=== PATIENT | male | born 1990 | race Caucasian/White ===

== ENCOUNTER 2020-09-07 16:02 | Emergency (ER) | payer OTHER ==
[~2020-09-07] VITALS: Ht 175.3 cm; Wt 90.9 kg
[2020-09-07] MEDS ORDERED: KETOROLAC TROMETHAMINE 60 MG/2 ML VIAL IM ONE (16:45)
[2020-09-07] MEDS ORDERED: LIDOCAINE 5% TRANSDERMAL PATCH TD ONE (16:45)
[2020-09-07 17:54] VITALS: BP 146/70
== END 2020-09-07 18:01 | disposition home or self-care (01) ==
LOC: EMS 16:08
DX: M54.5 Low back pain (principal)
CPT/HCPCS: 72110; 96374; 99283; J1885

== ENCOUNTER 2021-01-27 22:21 | Emergency (ER) | payer OTHER ==
[~2021-01-27] VITALS: Ht 175.3 cm; Wt 90.9 kg
[2021-01-28 01:00] VITALS: BP 127/80
[2021-01-28] MEDS ORDERED: DiphenhydrAMINE HCL 25 MG CAPSULE PO ONE (01:00)
== END 2021-01-28 01:10 | disposition home or self-care (01) ==
LOC: EMS 22:24
DX: S40.262A Insect bite (nonvenomous) of left shoulder, initial encounter (principal); S40.261A Insect bite (nonvenomous) of right shoulder, initial encounter; W57.XXXA Bitten or stung by nonvenomous insect and other nonvenomous arthropods, initial encounter; Y93.89 Activity, other specified; Y92.89 Other specified places as the place of occurrence of the external cause; Y99.8 Other external cause status
CPT/HCPCS: 99282; 99283

== ENCOUNTER 2021-01-29 22:28 | Emergency (ER) | payer OTHER ==
[~2021-01-29] VITALS: Ht 175.3 cm; Wt 90.9 kg
[2021-01-29 22:45] VITALS: BP 124/72
[2021-01-29] MEDS ORDERED: PERMETHRIN 1% 60 ML LOTION TP ONE (22:45)
[2021-01-29] MEDS ORDERED: PERMETHRIN 5% 60 GM CREAM TP ONE (23:15)
== END 2021-01-29 23:30 | disposition home or self-care (01) ==
LOC: EMS 22:29
DX: S90.861A Insect bite (nonvenomous), right foot, initial encounter (principal); S90.862A Insect bite (nonvenomous), left foot, initial encounter; W57.XXXA Bitten or stung by nonvenomous insect and other nonvenomous arthropods, initial encounter; Y93.89 Activity, other specified; Y92.89 Other specified places as the place of occurrence of the external cause; Y99.8 Other external cause status
CPT/HCPCS: 99282; Z7502; Z7610

== ENCOUNTER 2021-02-19 19:58 | Emergency (ER) | payer OTHER ==
[~2021-02-19] VITALS: Ht 175.3 cm; Wt 90.9 kg
[2021-02-19 20:15] VITALS: BP 119/72
[2021-02-19] MEDS ORDERED: KETOROLAC TROMETHAMINE 30 MG/ML VIAL IM ONE (20:15)
[2021-02-19] MEDS ORDERED: CEPHALEXIN MONOHYDRATE 500 MG CAPSULE PO ONE (20:15)
== END 2021-02-19 20:30 | disposition home or self-care (01) ==
LOC: EMS 20:01
DX: L02.415 Cutaneous abscess of right lower limb (principal); L03.115 Cellulitis of right lower limb
CPT/HCPCS: 96372; 99283; J1885

== ENCOUNTER 2021-04-13 15:58 | Emergency (ER) | payer OTHER ==
[~2021-04-13] VITALS: Ht 175.3 cm; Wt 90.9 kg
[2021-04-13 18:35] VITALS: BP 126/74
[2021-04-13] MEDS ORDERED: SODIUM CHLORIDE 0.9% 250 ML IRRIG SOLUTION BOTTLE IRRIG ONE (19:00)
== END 2021-04-13 19:15 | disposition home or self-care (01) ==
LOC: EMS 15:58
DX: S00.03XA Contusion of scalp, initial encounter (principal); S00.01XA Abrasion of scalp, initial encounter; F17.210 Nicotine dependence, cigarettes, uncomplicated; Y00.XXXA Assault by blunt object, initial encounter; Y93.89 Activity, other specified; Y92.89 Other specified places as the place of occurrence of the external cause; Y99.8 Other external cause status
CPT/HCPCS: 99283; Z7502

== ENCOUNTER 2021-05-22 15:51 | Emergency (ER) | payer OTHER ==
[~2021-05-22] VITALS: Ht 175.3 cm; Wt 100.0 kg
[2021-05-22 16:02] VITALS: BP 124/61
[2021-05-22 17:41] LABS: COVID AG,FIA SOURCE NASAL SWAB
[2021-05-22] MEDS ORDERED: ACETAMINOPHEN 500 MG TABLET PO ONE (19:30)
[2021-05-22] MEDS ORDERED: ONDANSETRON HCL 4 MG TABLET PO ONE (19:30)
== END 2021-05-22 19:45 | disposition home or self-care (01) ==
LOC: EMS 15:57
DX: U07.1 COVID-19 (principal); F17.210 Nicotine dependence, cigarettes, uncomplicated
CPT/HCPCS: 87426; 99283; Q0162; U0003

== ENCOUNTER 2021-06-18 18:19 | Emergency (ER) | payer OTHER ==
[~2021-06-18] VITALS: Ht 175.3 cm; Wt 95.5 kg
[2021-06-18] MEDS ORDERED: KETOROLAC TROMETHAMINE 30 MG/ML VIAL IM ONE (19:45)
[2021-06-18 20:14] LABS: BASOPHILS % (AUTO) 1.5 % (0.0-2.0); EOSINOPHILS % (AUTO) 9.7 % (1.0-6.0); HEMOGLOBIN 14.8 g/dL (13.5-17.5); MEAN CORPUSCULAR HEMOGLOBIN 32.2 pg (26.0-34.0); MEAN CORPUSCULAR HGB CONC 35.1 G/dL (31.0-37.0); MEAN CORPUSCULAR VOLUME 92 fL (80-100); MONOCYTES # (AUTO) 0.5 K/uL (0.1-1.0); MONOCYTES % (AUTO) 9.8 % (2.0-9.0); PLATELET COUNT (AUTO) 237 K/uL (150-450); RED BLOOD CELL COUNT(AUTO) 4.59 MIL/uL (4.50-5.90); RED CELL DISTRIBUTION WIDTH 14.1 % (11.5-14.5)
[2021-06-18 20:29] LABS: ANION GAP 16 mmol/L (8-16); CALCIUM, TOTAL 8.8 mg/dL (8.8-10.5); CARBON DIOXIDE 26 mmol/L (22-29); CHLORIDE 103 mmol/L (98-107); CREATININE 0.93 mg/dL (0.60-1.30); GLOMERULAR FILTR. RATE CALC > 60 mL/min (>60); GLUCOSE,RANDOM 92 mg/dL (70-110); POTASSIUM 3.6 mmol/L (3.5-5.1); SODIUM SERUM 145 mmol/L (136-145); UREA NITROGEN, BLOOD 16 mg/dL (7-18)
[2021-06-18 20:31] LABS: APPEARANCE,URINE CLOUDY (CLEAR); GLUCOSE, URINE (UA) NEGATIVE (NEGATIVE); KETONES,URINE TRACE mg/dL (NEGATIVE); LEUKOCYTE ESTERASE ,URINE NEGATIVE (NEGATIVE); NITRATE,URINE NEGATIVE (NEGATIVE); OCCULT BLOOD,URINE NEGATIVE (NEGATIVE); PH,URINE 5.5 (5.0-8.0); PROTEIN,URINE NEGATIVE (NEGATIVE)
[2021-06-18 20:31] LABS: ALANINE AMINOTRANSFERASE 20 U/L (12-78); ALBUMIN 3.9 g/dL (3.4-5.0); ALKALINE PHOSPHATASE 58 U/L (46-116); ASPARTATE AMINOTRANSFERASE 13 U/L (15-37); BILIRUBIN,TOTAL 0.4 mg/dL (0.1-1.0); LIPASE 67 U/L (73-393); TOTAL PROTEIN, SERUM 7.4 g/dL (6.4-8.2)
[2021-06-18 20:47] LABS: BILIRUBIN,URINE PRELIM. POSITIVE (NEGATIVE)
[2021-06-18 20:48] LABS: BACTERIA,URINE Rare /HPF (None Seen); RBC,URINE None Seen /HPF (0-2); WBC,URINE 0-2 /HPF (0-5)
[2021-06-18] MEDS ORDERED: IBUP-2070 PO (22:01)
[2021-06-18] MEDS ORDERED: METR250 PO (22:01)
[2021-06-18] MEDS ORDERED: SULF-261 PO (22:01)
[2021-06-18 22:17] VITALS: BP 126/73
[2021-06-19] MEDS ORDERED: IBUP-2070 PO (19:33)
[2021-06-19] MEDS ORDERED: SULF-261 PO (19:33)
[2021-06-19] MEDS ORDERED: METR250 PO (19:33)
== END 2021-06-18 22:35 | disposition home or self-care (01) ==
LOC: EMS 18:20
DX: K57.92 Diverticulitis of intestine, part unspecified, without perforation or abscess without bleeding (principal); F17.210 Nicotine dependence, cigarettes, uncomplicated
CPT/HCPCS: 36415; 74176; 80053; 81001; 83690; 85025; 96372; 99284; J1885

== ENCOUNTER 2021-08-02 14:08 | Emergency (ER) | payer OTHER ==
[~2021-08-02] VITALS: Ht 175.3 cm; Wt 97.7 kg
[~2021-08-02 14:08] MED LIST: IBUP-2070 PO; METR250 PO; SULF-261 PO
[2021-08-02 15:21] VITALS: BP 120/75
== END 2021-08-02 16:35 | disposition left against medical advice (07) ==
LOC: EMS 14:08
DX: M25.562 Pain in left knee (principal); Z53.21 Procedure and treatment not carried out due to patient leaving prior to being seen by health care provider

== ENCOUNTER 2021-12-26 14:07 | Emergency (ER) | payer OTHER ==
[~2021-12-26] VITALS: Ht 172.7 cm; Wt 75.0 kg
[2021-12-26 14:53] VITALS: BP 127/79
[2021-12-26] MEDS ORDERED: CefTRIAXone SODIUM 1 GM/VIAL IM ONE (15:30)
[2021-12-26] MEDS ORDERED: AZITHROMYCIN 500 MG TABLET PO ONE (15:30)
[2021-12-26] MEDS ORDERED: LIDOCAINE/PF 1% 2 ML VIAL IM ONE (15:30)
[2021-12-26 16:09] LABS: COVID AG,FIA SOURCE NASOPHARYNGEAL
[2021-12-26 16:13] LABS: APPEARANCE,URINE CLEAR (CLEAR); BILIRUBIN,URINE NEGATIVE (NEGATIVE); GLUCOSE, URINE (UA) NEGATIVE (NEGATIVE); KETONES,URINE TRACE mg/dL (NEGATIVE); LEUKOCYTE ESTERASE ,URINE NEGATIVE (NEGATIVE); NITRATE,URINE NEGATIVE (NEGATIVE); OCCULT BLOOD,URINE TRACE (NEGATIVE); PH,URINE 5.5 (5.0-8.0); PROTEIN,URINE 30-70 mg/dL (NEGATIVE); SPECIFIC GRAVITIY, URINE 1.031 (1.003-1.030)
[2021-12-26 16:30] LABS: BACTERIA,URINE Rare /HPF (None Seen); CALCIUM OXALATE CRYSTALS,UR Few /LPF (None Seen); SQUAMOUS EPITHELIAL CELL,UR Rare /LPF (None Seen); WBC,URINE 0-2 /HPF (0-5)
== END 2021-12-26 18:10 | disposition home or self-care (01) ==
LOC: EMS 14:16
DX: A64 Unspecified sexually transmitted disease (principal); Z20.822 Contact with and (suspected) exposure to COVID-19; F17.210 Nicotine dependence, cigarettes, uncomplicated
CPT/HCPCS: 99283; 87426; 81001; 87491; 87591; 96372; U0003; J0696; J3490; Q9967; C9803

== ENCOUNTER 2022-02-24 21:08 | Emergency (ER) | payer OTHER ==
[~2022-02-24] VITALS: Ht 170.2 cm; Wt 100.0 kg
[2022-02-24] MEDS ORDERED: KETOROLAC TROMETHAMINE 30 MG/ML VIAL IVP ONE (21:45)
[2022-02-24] MEDS ORDERED: SODIUM CHLORIDE 0.9% 2,000 ML IV ONE (21:45)
[2022-02-24] MEDS ORDERED: ONDANSETRON HCL 4 MG/2 ML VIAL IVP ONE (21:45)
[2022-02-24] MEDS ORDERED: DIPHENOXYLATE/ATROP 2.5-0.025 MG TABLET PO ONE (21:45)
[2022-02-24 21:47] LABS: BASOPHILS % (AUTO) 0.7 % (0.0-2.0); HEMATOCRIT 46.1 % (41-53); HEMOGLOBIN 15.8 g/dL (13.5-17.5); LYMPHOCYTES # (AUTO) 1.3 K/uL (1.0-4.8); LYMPHOCYTES % (AUTO) 18.4 % (22.0-44.0); MEAN CORPUSCULAR HEMOGLOBIN 32.8 pg (26.0-34.0); MEAN CORPUSCULAR HGB CONC 34.3 G/dL (31.0-37.0); MEAN CORPUSCULAR VOLUME 96 fL (80-100); MONOCYTES # (AUTO) 0.8 K/uL (0.1-1.0); MONOCYTES % (AUTO) 11.6 % (2.0-9.0); NEUTROPHILS # (AUTO) 4.3 K/uL (1.8-7.7); NEUTROPHILS % (AUTO) 61.3 % (40.0-70.0); PLATELET COUNT (AUTO) 292 K/uL (150-450); RED BLOOD CELL COUNT(AUTO) 4.83 MIL/uL (4.50-5.90); RED CELL DISTRIBUTION WIDTH 13.8 % (11.5-14.5)
[2022-02-24 22:02] LABS: ALANINE AMINOTRANSFERASE 36 U/L (12-78); ALBUMIN 2.9 g/dL (3.4-5.0); ALKALINE PHOSPHATASE 47 U/L (46-116); ANION GAP 3 mmol/L (8-16); ASPARTATE AMINOTRANSFERASE 20 U/L (15-37); BILIRUBIN,TOTAL 0.2 mg/dL (0.1-1.0); CALCIUM, TOTAL 8.5 mg/dL (8.8-10.5); CARBON DIOXIDE 32 mmol/L (22-29); CHLORIDE 105 mmol/L (98-107); CREATININE 1.19 mg/dL (0.60-1.30); GLUCOSE,RANDOM 95 mg/dL (70-110); LIPASE 90 U/L (73-393); POTASSIUM 3.8 mmol/L (3.5-5.1); SODIUM SERUM 140 mmol/L (136-145); TOTAL PROTEIN, SERUM 5.6 g/dL (6.4-8.2); UREA NITROGEN, BLOOD 7 mg/dL (7-18)
[2022-02-24 22:03] LABS: GLOMERULAR FILTR. RATE CALC > 60 mL/min (>60)
[2022-02-24] MEDS ORDERED: DIPH-654 PO (22:58)
[2022-02-24] MEDS ORDERED: ONDA-104 PO (22:58)
[2022-02-24] MEDS ORDERED: OMEP20 PO (22:58)
[2022-02-24] MEDS ORDERED: ACET-66 PO (22:58)
[2022-02-24] MEDS ORDERED: MAG30ORA11 PO (22:58)
[2022-02-24 23:07] VITALS: BP 126/70
== END 2022-02-24 23:57 | disposition home or self-care (01) ==
LOC: EMS 21:10
DX: K52.9 Noninfective gastroenteritis and colitis, unspecified (principal); R10.9 Unspecified abdominal pain; F10.20 Alcohol dependence, uncomplicated; F17.210 Nicotine dependence, cigarettes, uncomplicated; R53.1 Weakness; Y90.0 Blood alcohol level of less than 20 mg/100 ml
CPT/HCPCS: 99284; 74176; 96374; 96361; 96375; 80053; 83690; 84484; 85025; 36415; G0480; J1885; J2405; J7030

== ENCOUNTER 2022-02-28 21:40 | Emergency (ER) | payer OTHER ==
[~2022-02-28] VITALS: Ht 177.8 cm; Wt 90.9 kg
[~2022-02-28 21:40] MED LIST changes: +ACET-66 PO; +DIPH-654 PO; -IBUP-2070 PO; +MAG30ORA11 PO; -METR250 PO; +OMEP20 PO; +ONDA-104 PO; -SULF-261 PO
[2022-03-01 01:00] VITALS: BP 147/87
[2022-03-01 01:01] LABS: BASOPHILS % (AUTO) 1.1 % (0.0-2.0); EOSINOPHILS % (AUTO) 6.7 % (1.0-6.0); HEMATOCRIT 43.4 % (41-53); HEMOGLOBIN 14.9 g/dL (13.5-17.5); LYMPHOCYTES % (AUTO) 18.4 % (22.0-44.0); MEAN CORPUSCULAR HEMOGLOBIN 32.9 pg (26.0-34.0); MEAN CORPUSCULAR HGB CONC 34.3 G/dL (31.0-37.0); MEAN CORPUSCULAR VOLUME 96 fL (80-100); MONOCYTES # (AUTO) 0.6 K/uL (0.1-1.0); MONOCYTES % (AUTO) 10.3 % (2.0-9.0); NEUTROPHILS # (AUTO) 3.5 K/uL (1.8-7.7); NEUTROPHILS % (AUTO) 63.5 % (40.0-70.0); PLATELET COUNT (AUTO) 272 K/uL (150-450); RED BLOOD CELL COUNT(AUTO) 4.52 MIL/uL (4.50-5.90)
[2022-03-01 01:06] LABS: ANION GAP 7 mmol/L (8-16); CALCIUM, TOTAL 8.1 mg/dL (8.8-10.5); CARBON DIOXIDE 29 mmol/L (22-29); CHLORIDE 103 mmol/L (98-107); CREATININE 1.17 mg/dL (0.60-1.30); GLUCOSE,RANDOM 97 mg/dL (70-110); POTASSIUM 3.9 mmol/L (3.5-5.1); SODIUM SERUM 139 mmol/L (136-145); UREA NITROGEN, BLOOD 9 mg/dL (7-18)
[2022-03-01 01:12] LABS: GLOMERULAR FILTR. RATE CALC > 60 mL/min (>60)
[2022-03-01 01:20] LABS: ALANINE AMINOTRANSFERASE 62 U/L (12-78); ALBUMIN 3.2 g/dL (3.4-5.0); ALKALINE PHOSPHATASE 51 U/L (46-116); ASPARTATE AMINOTRANSFERASE 44 U/L (15-37); BILIRUBIN,TOTAL 0.2 mg/dL (0.1-1.0); TOTAL PROTEIN, SERUM 6.2 g/dL (6.4-8.2)
== END 2022-03-01 03:46 | disposition home or self-care (01) ==
LOC: EMS 21:40
DX: R45.851 Suicidal ideations (principal); K70.30 Alcoholic cirrhosis of liver without ascites; F17.210 Nicotine dependence, cigarettes, uncomplicated; F10.229 Alcohol dependence with intoxication, unspecified
CPT/HCPCS: 99285; 80053; 85025; 36415; G0480

== ENCOUNTER 2022-03-05 20:05 | Emergency (ER) | payer OTHER ==
[~2022-03-05] VITALS: Ht 172.7 cm; Wt 90.1 kg
[2022-03-05 21:26] VITALS: BP 129/72
[2022-03-05] MEDS ORDERED: ACETAMINOPHEN 325 MG TABLET PO ONE (21:30)
[2022-03-07 08:06] LABS: HIV 1-2 SCREEN 4TH GEN W/RFLX Non Reactive (Non Reactive)
== END 2022-03-05 22:10 | disposition home or self-care (01) ==
LOC: EMS 20:09
DX: R51.9 Headache, unspecified (principal); F17.210 Nicotine dependence, cigarettes, uncomplicated
CPT/HCPCS: 86592; 87389; 99283; 99285

== ENCOUNTER 2022-03-05 23:38 | Emergency (ER) | payer OTHER ==
[~2022-03-05] VITALS: Ht 175.3 cm; Wt 100.0 kg
[2022-03-06] MEDS: IBUPROFEN 600 MG TABLET PO ONE (00:59)
[2022-03-06 04:34] VITALS: BP 105/62
== END 2022-03-06 05:09 | disposition home or self-care (01) ==
LOC: EMS 23:44
DX: S09.90XA Unspecified injury of head, initial encounter (principal); F17.210 Nicotine dependence, cigarettes, uncomplicated; F10.20 Alcohol dependence, uncomplicated; W18.30XA Fall on same level, unspecified, initial encounter; Y93.89 Activity, other specified; Y92.89 Other specified places as the place of occurrence of the external cause; Y99.8 Other external cause status
CPT/HCPCS: 70450; 72125; 99284

== ENCOUNTER 2022-03-29 20:33 | Emergency (ER) | payer OTHER | END 2022-03-29 22:31 | disposition left against medical advice (07) | LOC: EMS 22:31 | DX: Z53.21 Procedure and treatment not carried out due to patient leaving prior to being seen by health care provider (principal) ==

== ENCOUNTER 2022-03-31 16:44 | Inpatient (IN) | payer MEDICAID, OTHER ==
[~2022-03-31] VITALS: Ht 175.3 cm; Wt 99.7 kg
[2022-03-31 17:50] LABS: BASOPHILS % (AUTO) 2.6 % (0.0-2.0); EOSINOPHILS % (AUTO) 7.3 % (1.0-6.0); HEMATOCRIT 43.7 % (41-53); HEMOGLOBIN 15.1 g/dL (13.5-17.5); MEAN CORPUSCULAR HGB CONC 34.6 G/dL (31.0-37.0); MEAN CORPUSCULAR VOLUME 95 fL (80-100); MONOCYTES # (AUTO) 0.5 K/uL (0.1-1.0); MONOCYTES % (AUTO) 8.8 % (2.0-9.0); NEUTROPHILS # (AUTO) 3.1 K/uL (1.8-7.7); NEUTROPHILS % (AUTO) 61.3 % (40.0-70.0); PLATELET COUNT (AUTO) 228 K/uL (150-450); RED BLOOD CELL COUNT(AUTO) 4.59 MIL/uL (4.50-5.90); RED CELL DISTRIBUTION WIDTH 13.7 % (11.5-14.5)
[2022-03-31 17:59] LABS: ANION GAP 10 mmol/L (8-16); CALCIUM, TOTAL 8.4 mg/dL (8.8-10.5); CARBON DIOXIDE 27 mmol/L (22-29); CHLORIDE 103 mmol/L (98-107); CREATININE 1.02 mg/dL (0.60-1.30); GLUCOSE,RANDOM 91 mg/dL (70-110); POTASSIUM 3.3 mmol/L (3.5-5.1); SODIUM SERUM 140 mmol/L (136-145); UREA NITROGEN, BLOOD 10 mg/dL (7-18)
[2022-03-31 18:00] LABS: GLOMERULAR FILTR. RATE CALC > 60 mL/min (>60)
[2022-03-31 18:05] LABS: ALANINE AMINOTRANSFERASE 33 U/L (12-78); ALBUMIN 3.2 g/dL (3.4-5.0); ALKALINE PHOSPHATASE 50 U/L (46-116); ASPARTATE AMINOTRANSFERASE 21 U/L (15-37); BILIRUBIN,TOTAL 0.2 mg/dL (0.1-1.0); TOTAL PROTEIN, SERUM 6.2 g/dL (6.4-8.2)
[2022-03-31] MEDS ORDERED: HALOPERIDOL 5 MG TABLET PO PRN (21:45)
[2022-03-31] MEDS ORDERED: LORazepam 2 MG TABLET PO PRN (21:45)
[2022-03-31 22:08] LABS: COVID AG,FIA SOURCE NASAL SWAB
[2022-03-31] MEDS: ZOLPIDEM TARTRATE 10 MG TABLET PO PRN (23:24)
[2022-03-31 23:29] VITALS: BP 119/80
[2022-04-01] MEDS ORDERED: LOPERAMIDE HCL 2 MG CAPSULE PO PRN (05:30)
[2022-04-01] MEDS ORDERED: PETROLATUM,WHITE 28 GM JELLY TP PRN (05:30)
[2022-04-01] MEDS ORDERED: DOCUSATE SODIUM 100 MG CAPSULE PO PRN (05:30)
[2022-04-01] MEDS ORDERED: ACETAMINOPHEN 325 MG TABLET PO PRN (05:30)
[2022-04-01] MEDS ORDERED: MAGNESIUM HYDROXIDE SUSPENSION 30 ML UDCUP PO PRN (05:30)
[2022-04-01] MEDS ORDERED: BACITRACIN 28 GM OINTMENT TP PRN (05:30)
[2022-04-01] MEDS ORDERED: IBUPROFEN 600 MG TABLET PO PRN (05:30)
[2022-04-01] MEDS ORDERED: ONDANSETRON HCL 4 MG TABLET PO PRN (05:30)
[2022-04-01] MEDS ORDERED: MAG HYDROX/AL HYDROX/SIMETH ES 30 ML SUSPENSION UDCUP PO PRN (05:30)
[2022-04-01] MEDS ORDERED: BENZOCAINE/MENTHOL LOZENGE PO PRN (05:30)
[2022-04-01] MEDS ORDERED: ALBUTEROL SULFATE HFA 90 MCG/PUFF 8 GM INHALER IH PRN (05:30)
[2022-04-01] MEDS ORDERED: CloNIDine HCL 0.1 MG TABLET PO PRN (05:30)
[2022-04-01] MEDS ORDERED: POTASSIUM CHLORIDE 20 MEQ ER TABLET PO ONE (05:30)
[2022-04-01] MEDS ORDERED: OMEPRAZOLE 20 MG CAPSULE PO PRN (05:30)
[2022-04-01] MEDS: FOLIC ACID 1 MG TABLET PO SCH (08:12)
[2022-04-01] MEDS: THIAMINE 100 MG TABLET PO SCH (08:12)
[2022-04-01 17:09] VITALS: BP 117/69
[2022-04-01] MEDS: OLANZapine 5 MG TABLET PO SCH (20:22)
[2022-04-01] MEDS: LITHIUM CARBONATE 300 MG CAPSULE PO SCH (20:22)
[2022-04-01] MEDS: DIVALPROEX SODIUM 500 MG DR TABLET PO SCH (20:22)
[2022-04-01] MEDS: ZOLPIDEM TARTRATE 10 MG TABLET PO PRN (20:23)
[2022-04-02] MEDS: FOLIC ACID 1 MG TABLET PO SCH (08:09)
[2022-04-02] MEDS: CITALOPRAM HYDROBROMIDE 20 MG TABLET PO SCH (08:09)
[2022-04-02] MEDS: THIAMINE 100 MG TABLET PO SCH (08:09)
[2022-04-02] MEDS: DIVALPROEX SODIUM 500 MG DR TABLET PO SCH ×2 (08:10→20:13)
[2022-04-02] MEDS: LITHIUM CARBONATE 300 MG CAPSULE PO SCH ×2 (08:10→20:13)
[2022-04-02 08:29] VITALS: BP 128/80
[2022-04-02 17:04] VITALS: BP 131/61
[2022-04-02] MEDS: ZOLPIDEM TARTRATE 10 MG TABLET PO PRN (20:13)
[2022-04-02] MEDS: OLANZapine 5 MG TABLET PO SCH (20:13)
[2022-04-03 08:20] VITALS: BP 116/58
[2022-04-03] MEDS: DIVALPROEX SODIUM 500 MG DR TABLET PO SCH ×2 (08:44→20:24)
[2022-04-03] MEDS: FOLIC ACID 1 MG TABLET PO SCH (08:44)
[2022-04-03] MEDS: LITHIUM CARBONATE 300 MG CAPSULE PO SCH ×2 (08:44→20:24)
[2022-04-03] MEDS: THIAMINE 100 MG TABLET PO SCH (08:44)
[2022-04-03] MEDS: CITALOPRAM HYDROBROMIDE 20 MG TABLET PO SCH (08:44)
[2022-04-03 16:20] VITALS: BP 113/70
[2022-04-03] MEDS: OLANZapine 5 MG TABLET PO SCH (20:24)
[2022-04-03] MEDS: ZOLPIDEM TARTRATE 10 MG TABLET PO PRN (20:25)
[2022-04-04 08:22] VITALS: BP 116/68
[2022-04-04] MEDS: CITALOPRAM HYDROBROMIDE 20 MG TABLET PO SCH (08:34)
[2022-04-04] MEDS: FOLIC ACID 1 MG TABLET PO SCH (08:34)
[2022-04-04] MEDS: THIAMINE 100 MG TABLET PO SCH (08:34)
[2022-04-04] MEDS: DIVALPROEX SODIUM 500 MG DR TABLET PO SCH ×2 (08:34→20:06)
[2022-04-04] MEDS: LITHIUM CARBONATE 300 MG CAPSULE PO SCH ×2 (08:34→20:06)
[2022-04-04 16:06] VITALS: BP 126/81
[2022-04-04] MEDS: OLANZapine 5 MG TABLET PO SCH (20:06)
[2022-04-05 07:04] LABS: CHOL/HDL RATIO 4.2 (4.2-7.3)
[2022-04-05] MEDS: LITHIUM CARBONATE 300 MG CAPSULE PO SCH (08:30)
[2022-04-05] MEDS: DIVALPROEX SODIUM 500 MG DR TABLET PO SCH (08:30)
[2022-04-05] MEDS: FOLIC ACID 1 MG TABLET PO SCH (08:30)
[2022-04-05] MEDS: CITALOPRAM HYDROBROMIDE 20 MG TABLET PO SCH (08:30)
[2022-04-05] MEDS: THIAMINE 100 MG TABLET PO SCH (08:30)
[2022-04-05 08:46] VITALS: BP 113/72
[2022-04-05 16:17] VITALS: BP 132/77
[2022-04-05 16:18] VITALS: BP 130/77
[2022-04-05] MEDS ORDERED: OLAN5TAB52 PO (16:21)
[2022-04-05] MEDS ORDERED: CITA-144 PO (16:21)
[2022-04-05] MEDS ORDERED: LITH300C3 PO (16:21)
[2022-04-05] MEDS ORDERED: DIVA-112 PO (16:21)
[2022-04-06] MEDS ORDERED: METR500 PO (05:08)
[2022-04-06] MEDS ORDERED: CIPR500T10 PO (05:08)
== END 2022-04-05 19:10 | disposition home or self-care (01) | DRG 750 ==
LOC: EMS 16:44 → 3EC 22:44
PROVIDERS: ADMIT Psychiatry & Neurology Psychiatry; ATTEND Psychiatry & Neurology Psychiatry
DX: F25.9 Schizoaffective disorder, unspecified (principal); R45.851 Suicidal ideations; E66.9 Obesity, unspecified; F41.9 Anxiety disorder, unspecified; G47.00 Insomnia, unspecified; K21.9 Gastro-esophageal reflux disease without esophagitis; F32.A Depression, unspecified; F10.20 Alcohol dependence, uncomplicated; Y90.3 Blood alcohol level of 60-79 mg/100 ml; Z20.822 Contact with and (suspected) exposure to COVID-19; E87.6 Hypokalemia; Z59.00 Homelessness unspecified; Z79.899 Other long term (current) drug therapy; Z87.891 Personal history of nicotine dependence; Z83.3 Family history of diabetes mellitus; Z82.49 Family history of ischemic heart disease and other diseases of the circulatory system; Z56.0 Unemployment, unspecified; Z68.32 Body mass index [BMI] 32.0-32.9, adult
CPT/HCPCS: 80053; 80061; 84132; 85025; 99285; G0480

== ENCOUNTER 2022-04-05 23:43 | Emergency (ER) | payer MEDICAID, OTHER ==
[~2022-04-05] VITALS: Ht 175.3 cm; Wt 100.0 kg
[~2022-04-05 23:43] MED LIST changes: +CITA-144 PO; +DIVA-112 PO; +LITH300C3 PO; +OLAN5TAB52 PO
[2022-04-06 01:32] LABS: BASOPHILS % (AUTO) 0.9 % (0.0-2.0); EOSINOPHILS % (AUTO) 10.4 % (1.0-6.0); HEMOGLOBIN 16.5 g/dL (13.5-17.5); LYMPHOCYTES # (AUTO) 1.3 K/uL (1.0-4.8); LYMPHOCYTES % (AUTO) 18.2 % (22.0-44.0); MEAN CORPUSCULAR HEMOGLOBIN 33.6 pg (26.0-34.0); MEAN CORPUSCULAR HGB CONC 35.9 G/dL (31.0-37.0); MEAN CORPUSCULAR VOLUME 94 fL (80-100); MONOCYTES # (AUTO) 0.7 K/uL (0.1-1.0); MONOCYTES % (AUTO) 10.7 % (2.0-9.0); NEUTROPHILS # (AUTO) 4.2 K/uL (1.8-7.7); NEUTROPHILS % (AUTO) 59.8 % (40.0-70.0); PLATELET COUNT (AUTO) 285 K/uL (150-450); RED BLOOD CELL COUNT(AUTO) 4.91 MIL/uL (4.50-5.90); RED CELL DISTRIBUTION WIDTH 13.6 % (11.5-14.5)
[2022-04-06 01:37] LABS: APPEARANCE,URINE CLEAR (CLEAR); BILIRUBIN,URINE NEGATIVE (NEGATIVE); GLUCOSE, URINE (UA) NEGATIVE (NEGATIVE); LEUKOCYTE ESTERASE ,URINE NEGATIVE (NEGATIVE); NITRATE,URINE NEGATIVE (NEGATIVE); OCCULT BLOOD,URINE NEGATIVE (NEGATIVE); PROTEIN,URINE TRACE mg/dL (NEGATIVE)
[2022-04-06 01:41] LABS: ANION GAP 4 mmol/L (8-16); CALCIUM, TOTAL 9.3 mg/dL (8.8-10.5); CARBON DIOXIDE 33 mmol/L (22-29); CHLORIDE 103 mmol/L (98-107); CREATININE 0.99 mg/dL (0.60-1.30); GLUCOSE,RANDOM 101 mg/dL (70-110); POTASSIUM 4.2 mmol/L (3.5-5.1); SODIUM SERUM 140 mmol/L (136-145); UREA NITROGEN, BLOOD 12 mg/dL (7-18)
[2022-04-06 01:43] LABS: GLOMERULAR FILTR. RATE CALC > 60 mL/min (>60)
[2022-04-06] MEDS ORDERED: FAMOTIDINE 40 MG in SODIUM CHLORIDE 0.9% 100 ML IV ONE (01:45)
[2022-04-06] MEDS ORDERED: SODIUM CHLORIDE 0.9% 1,000 ML IV ONE (01:45)
[2022-04-06 01:49] LABS: ALANINE AMINOTRANSFERASE 59 U/L (12-78); ALBUMIN 3.9 g/dL (3.4-5.0); ALKALINE PHOSPHATASE 52 U/L (46-116); ASPARTATE AMINOTRANSFERASE 39 U/L (15-37); BILIRUBIN,TOTAL 0.3 mg/dL (0.1-1.0); LIPASE 135 U/L (73-393); TOTAL PROTEIN, SERUM 7.4 g/dL (6.4-8.2); VALPROIC ACID 40 mcg/mL (50-100)
[2022-04-06 01:52] LABS: LITHIUM 0.29 mmol/L (0.60-1.20)
[2022-04-06] MEDS ORDERED: SODIUM CHLORIDE 0.9% 100 ML ONE (01:55)
[2022-04-06] MEDS ORDERED: FAMOTIDINE 10 MG/ML 2 ML VIAL ONE (01:55)
[2022-04-06] MEDS ORDERED: MetroNIDAZOLE 500 MG TABLET PO ONE (02:45)
[2022-04-06] MEDS ORDERED: CIPROFLOXACIN 400 MG/D5% WATER 200 ML IV ONE (02:45)
[2022-04-06] MEDS ORDERED: MetroNIDAZOLE 250 MG TABLET PO ONE (02:45)
[2022-04-06] MEDS ORDERED: METR500 PO (05:08)
[2022-04-06] MEDS ORDERED: CIPR500T10 PO (05:08)
[2022-04-06 06:15] VITALS: BP 142/78
[2022-04-07] MEDS ORDERED: POLY17PO PO (01:34)
== END 2022-04-06 06:22 | disposition home or self-care (01) ==
LOC: EMS 23:44
DX: K57.92 Diverticulitis of intestine, part unspecified, without perforation or abscess without bleeding (principal); R10.32 Left lower quadrant pain; F10.20 Alcohol dependence, uncomplicated; F17.210 Nicotine dependence, cigarettes, uncomplicated; K21.9 Gastro-esophageal reflux disease without esophagitis
CPT/HCPCS: 99285; 80053; 80164; 80178; 81003; 83690; 85025; 36415; 96365; 96366; 74022; 96368; G0480; J0744; J3490; J7030; J7050

== ENCOUNTER 2022-04-06 21:52 | Emergency (ER) | payer OTHER ==
[~2022-04-06] VITALS: Ht 175.3 cm; Wt 100.0 kg
[~2022-04-06 21:52] MED LIST changes: +CIPR500T10 PO; +METR500 PO
[2022-04-06] MEDS ORDERED: SODIUM CHLORIDE 0.9% 1,000 ML IV ONE (22:15)
[2022-04-06] MEDS ORDERED: SODIUM CHLORIDE 0.9% 100 ML ONE (22:19)
[2022-04-06] MEDS ORDERED: IOHEXOL 350 MG/ML 100 ML VIAL ONE (22:19)
[2022-04-06 22:30] VITALS: BP 122/61
[2022-04-06 22:43] LABS: BASOPHILS % (AUTO) 0.7 % (0.0-2.0); EOSINOPHILS % (AUTO) 7.5 % (1.0-6.0); HEMATOCRIT 47.4 % (41-53); HEMOGLOBIN 16.3 g/dL (13.5-17.5); LYMPHOCYTES # (AUTO) 0.9 K/uL (1.0-4.8); LYMPHOCYTES % (AUTO) 17.7 % (22.0-44.0); MEAN CORPUSCULAR HEMOGLOBIN 32.6 pg (26.0-34.0); MEAN CORPUSCULAR HGB CONC 34.4 G/dL (31.0-37.0); MEAN CORPUSCULAR VOLUME 95 fL (80-100); MONOCYTES # (AUTO) 0.5 K/uL (0.1-1.0); MONOCYTES % (AUTO) 9.6 % (2.0-9.0); NEUTROPHILS # (AUTO) 3.3 K/uL (1.8-7.7); NEUTROPHILS % (AUTO) 64.5 % (40.0-70.0); PLATELET COUNT (AUTO) 253 K/uL (150-450); RED CELL DISTRIBUTION WIDTH 13.6 % (11.5-14.5)
[2022-04-06 22:53] LABS: ANION GAP 10 mmol/L (8-16); CALCIUM, TOTAL 8.8 mg/dL (8.8-10.5); CARBON DIOXIDE 28 mmol/L (22-29); CHLORIDE 102 mmol/L (98-107); CREATININE 0.96 mg/dL (0.60-1.30); GLUCOSE,RANDOM 94 mg/dL (70-110); POTASSIUM 3.3 mmol/L (3.5-5.1); SODIUM SERUM 140 mmol/L (136-145); UREA NITROGEN, BLOOD 7 mg/dL (7-18)
[2022-04-06 22:55] LABS: GLOMERULAR FILTR. RATE CALC > 60 mL/min (>60)
[2022-04-06 23:00] LABS: ALANINE AMINOTRANSFERASE 48 U/L (12-78); ALBUMIN 3.7 g/dL (3.4-5.0); ALKALINE PHOSPHATASE 46 U/L (46-116); ASPARTATE AMINOTRANSFERASE 32 U/L (15-37); BILIRUBIN,TOTAL 0.2 mg/dL (0.1-1.0); LIPASE 82 U/L (73-393); TOTAL PROTEIN, SERUM 6.8 g/dL (6.4-8.2)
[2022-04-06 23:17] LABS: APPEARANCE,URINE CLEAR (CLEAR); BILIRUBIN,URINE NEGATIVE (NEGATIVE); GLUCOSE, URINE (UA) NEGATIVE (NEGATIVE); KETONES,URINE NEGATIVE (NEGATIVE); LEUKOCYTE ESTERASE ,URINE NEGATIVE (NEGATIVE); NITRATE,URINE NEGATIVE (NEGATIVE); OCCULT BLOOD,URINE NEGATIVE (NEGATIVE); PROTEIN,URINE NEGATIVE (NEGATIVE); SPECIFIC GRAVITIY, URINE 1.035 (1.003-1.030); UROBILINOGEN,URINE <=1.0 mg/dL (<=1.0)
[2022-04-07] MEDS ORDERED: SODIUM CHLORIDE 0.9% 0 ML ONE (00:41)
[2022-04-07] MEDS ORDERED: FAMOTIDINE 10 MG/ML 2 ML VIAL ONE (00:42)
[2022-04-07] MEDS ORDERED: FAMOTIDINE 40 MG in SODIUM CHLORIDE 0.9% 100 ML IV ONE (00:45)
[2022-04-07] MEDS ORDERED: POLY17PO PO (01:34)
== END 2022-04-07 02:00 | disposition home or self-care (01) ==
LOC: EMS 21:52
DX: R10.84 Generalized abdominal pain (principal); F17.210 Nicotine dependence, cigarettes, uncomplicated; Z79.899 Other long term (current) drug therapy
CPT/HCPCS: 99285; 74177; 96361; 80053; 81003; 83690; 85025; 36415; 96365; Q9967; J7050 ×2; J3490

== ENCOUNTER 2022-04-08 14:33 | Emergency (ER) | payer OTHER ==
[~2022-04-08] VITALS: Ht 170.2 cm; Wt 97.7 kg
[~2022-04-08 14:33] MED LIST changes: -ACET-66 PO; -DIPH-654 PO; -MAG30ORA11 PO; -OMEP20 PO; -ONDA-104 PO; +POLY17PO PO
[2022-04-08 15:24] LABS: BASOPHILS % (AUTO) 0.3 % (0.0-2.0); EOSINOPHILS % (AUTO) 10.8 % (1.0-6.0); HEMATOCRIT 40.5 % (41-53); HEMOGLOBIN 13.8 g/dL (13.5-17.5); LYMPHOCYTES # (AUTO) 0.8 K/uL (1.0-4.8); LYMPHOCYTES % (AUTO) 14.9 % (22.0-44.0); MEAN CORPUSCULAR HEMOGLOBIN 32.6 pg (26.0-34.0); MEAN CORPUSCULAR HGB CONC 34.1 G/dL (31.0-37.0); MEAN CORPUSCULAR VOLUME 95 fL (80-100); MONOCYTES # (AUTO) 0.5 K/uL (0.1-1.0); NEUTROPHILS # (AUTO) 3.5 K/uL (1.8-7.7); PLATELET COUNT (AUTO) 245 K/uL (150-450); RED BLOOD CELL COUNT(AUTO) 4.25 MIL/uL (4.50-5.90); RED CELL DISTRIBUTION WIDTH 13.6 % (11.5-14.5)
[2022-04-08 15:32] LABS: ANION GAP 2 mmol/L (8-16); CALCIUM, TOTAL 8.4 mg/dL (8.8-10.5); CARBON DIOXIDE 30 mmol/L (22-29); CHLORIDE 108 mmol/L (98-107); CREATININE 1.03 mg/dL (0.60-1.30); GLUCOSE,RANDOM 111 mg/dL (70-110); POTASSIUM 4.2 mmol/L (3.5-5.1); SODIUM SERUM 140 mmol/L (136-145); UREA NITROGEN, BLOOD 7 mg/dL (7-18)
[2022-04-08 15:34] LABS: GLOMERULAR FILTR. RATE CALC > 60 mL/min (>60)
[2022-04-08 15:38] LABS: ALANINE AMINOTRANSFERASE 35 U/L (12-78); ALBUMIN 3.2 g/dL (3.4-5.0); ALKALINE PHOSPHATASE 45 U/L (46-116); ASPARTATE AMINOTRANSFERASE 22 U/L (15-37); BILIRUBIN,TOTAL 0.2 mg/dL (0.1-1.0); LIPASE 94 U/L (73-393); TOTAL PROTEIN, SERUM 5.8 g/dL (6.4-8.2)
[2022-04-08 16:00] VITALS: BP 138/73
== END 2022-04-08 16:30 | disposition home or self-care (01) ==
LOC: EMS 14:36
DX: R10.84 Generalized abdominal pain (principal); K62.5 Hemorrhage of anus and rectum; F10.20 Alcohol dependence, uncomplicated; F31.9 Bipolar disorder, unspecified; F34.0 Cyclothymic disorder; F17.210 Nicotine dependence, cigarettes, uncomplicated
CPT/HCPCS: 80053; 80178; 83690; 85025; 99283

== ENCOUNTER 2023-12-22 19:53 | Emergency (ER) | payer MEDICAID, OTHER ==
[~2023-12-22] VITALS: Ht 175.3 cm; Wt 100.0 kg
[~2023-12-22 19:53] MED LIST changes: -POLY17PO PO; +POLY17PO62 PO
[2023-12-22 20:12] VITALS: BP 113/54; PULSE 81; RESP 16; TEMP 98.4
[2023-12-22 20:36] LABS: APPEARANCE,URINE CLEAR (CLEAR); BILIRUBIN,URINE NEGATIVE (NEGATIVE); COLOR,URINE LIGHT YELLOW (YELLOW); GLUCOSE, URINE (UA) NEGATIVE (NEGATIVE); KETONES,URINE NEGATIVE (NEGATIVE); LEUKOCYTE ESTERASE ,URINE NEGATIVE (NEGATIVE); NITRATE,URINE NEGATIVE (NEGATIVE); OCCULT BLOOD,URINE NEGATIVE (NEGATIVE); PH,URINE 5.5 (5.0-8.0); PROTEIN,URINE NEGATIVE (NEGATIVE); SPECIFIC GRAVITIY, URINE 1.014 (1.003-1.030); UROBILINOGEN,URINE <=1.0 mg/dL (<=1.0)
[2023-12-22 20:44] LABS: ALCOHOL, URINE DRUG SCREEN POSITIVE (NEGATIVE); AMPHET/METH SCREEN,URINE NEGATIVE (NEGATIVE); BARBITURATE SCREEN, URINE NEGATIVE (NEGATIVE); BENZODIAZEPINES SCREEN,URINE NEGATIVE (NEGATIVE); CANNABINOID SCREEN,URINE NEGATIVE (NEGATIVE); COCAINE SCREEN,URINE NEGATIVE (NEGATIVE); METHADONE SCREEN, URINE NEGATIVE (NEGATIVE); OPIATE SCREEN,URINE NEGATIVE (NEGATIVE); PHENCYCLIDINE SCREEN,URINE NEGATIVE (NEGATIVE)
[2023-12-22 20:53] LABS: PH,URINE DRUG SCREEN 5.5 (5.0-8.0)
[2023-12-22 21:06] LABS: BACTERIA,URINE None Seen /HPF (None Seen); RBC,URINE None Seen /HPF (0-2); SQUAMOUS EPITHELIAL CELL,UR Rare /LPF (None Seen); WBC,URINE None Seen /HPF (0-5)
[2023-12-22] MEDS: DOXYCYCLINE HYCLATE 100 MG TABLET PO ONE (23:30)
[2023-12-22] MEDS: CefTRIAXone SODIUM 1 GM/VIAL IM ONE (23:30)
[2023-12-22] MEDS ORDERED: DOXY-354 PO (23:30)
[2023-12-22] MEDS: LIDOCAINE/PF 1% 2 ML VIAL IM ONE (23:30)
== END 2023-12-22 23:36 | disposition home or self-care (01) ==
LOC: EMS 19:53
DX: R36.9 Urethral discharge, unspecified (principal); F10.20 Alcohol dependence, uncomplicated; F17.210 Nicotine dependence, cigarettes, uncomplicated; F31.9 Bipolar disorder, unspecified; Y90.9 Presence of alcohol in blood, level not specified
CPT/HCPCS: 99283; 87491; 87591; 96372; 80307; 81001; J0696; J3490

== ENCOUNTER 2023-12-25 18:27 | Emergency (ER) | payer MEDICAID ==
[~2023-12-25] VITALS: Ht 152.4 cm; Wt 100.0 kg
[~2023-12-25 18:27] MED LIST changes: +DOXY-354 PO
[2023-12-25] MEDS ORDERED: BACI28.410 TP (21:50)
[2023-12-25 22:25] VITALS: BP 132/71; PULSE 74; RESP 19; TEMP 97.3
[2023-12-25 22:29] LABS: APPEARANCE,URINE CLEAR (CLEAR); BILIRUBIN,URINE NEGATIVE (NEGATIVE); COLOR,URINE YELLOW (YELLOW); GLUCOSE, URINE (UA) NEGATIVE (NEGATIVE); KETONES,URINE NEGATIVE (NEGATIVE); LEUKOCYTE ESTERASE ,URINE NEGATIVE (NEGATIVE); NITRATE,URINE NEGATIVE (NEGATIVE); OCCULT BLOOD,URINE NEGATIVE (NEGATIVE); PH,URINE 5.5 (5.0-8.0); PROTEIN,URINE TRACE mg/dL (NEGATIVE); SPECIFIC GRAVITIY, URINE 1.029 (1.003-1.030)
== END 2023-12-25 23:07 | disposition home or self-care (01) ==
LOC: EMS 18:28
DX: S31.21XA Laceration without foreign body of penis, initial encounter (principal); F10.20 Alcohol dependence, uncomplicated; F31.9 Bipolar disorder, unspecified; F17.210 Nicotine dependence, cigarettes, uncomplicated; X58.XXXA Exposure to other specified factors, initial encounter; Y93.89 Activity, other specified; Y92.89 Other specified places as the place of occurrence of the external cause; Y99.8 Other external cause status
CPT/HCPCS: 81003; 87491; 87591; 99283